=== PATIENT | male | born 1965 | race Caucasian/White ===

== ENCOUNTER 2019-04-17 07:13 | Day surgery (SDC) | payer OTHER ==
[~2019-04-17 07:13] MED LIST: AMARYL; ASA81 MG PO; ATACAND16 MG PO; CLONAZEPAM2 M1; DILTIAZEM 24HR120 MG PO; GLIMEPIRIDE4 MG PO; LIPITOR20 MG; METFORMIN HCL850 MG; NEURONTIN800 MG; PROZAC20 MG; PROZAC20 MG PO; SEROQUEL25 MG; SEROQUEL50 MG PO; SINGULAIR10 MG PO; [UNRECOGNIZED DRUG - OTHER]
== END 2019-04-17 16:45 | disposition home or self-care (01) ==
LOC: CIR.AMB 07:13
DX: K64.8 Other hemorrhoids (principal); K64.4 Residual hemorrhoidal skin tags